=== PATIENT | male | born 1960 | race Caucasian/White ===

== ENCOUNTER 2020-11-20 08:01 | Outpatient (AMBR) | payer MEDICARE, MEDICAID, SELFPAY ==
--- NOTE | 2020-11-20 08:10 | PT.OIERPT ---
PT OP Initial Eval Patient Information Visit Reasons: low back pain Medical Diagnosis: M54.5 M51.36 M47.816 Treatment Dx #1: Start of Care: 11/20/20 Date of Onset: 4 weeks ago Initial Assessment Subjective Pt is 60 yr old male who reports a fall at home with pain in the back and B hips since then. Increased pain with prolonged sitting, getting up from a chair and bending. He is not working at this time and says his L/S is not hurting just the T/S. PLOF: prior to fall pt had mobility of T/S and L/S not limited by pain and no pain with sitting. PMH: HTN, allergies, L TKA Imaging: X-ray of L/S in EMR: Moderate multilevel DJD Pt goal: to lessen the pain Objective Trunk ArOM: B SB 18 with pain L>R Extension: 30% with pain around T8-12 Flexion: 10 from floor with LBP B rotation: 40% R SLR ROM: 52 deg. L SLR: 50 deg with posterior knee neural tension, LBP LE strength: B hamstrings: 4/5 Quads 4/5 TTP: moderate T8-12 paraspinals Assessment Pt presents with thoracic pain and decreased thoracic ROM consistent with Dx of spondylosis. X-rays reveal anterior spurring of T/S that is likely contributing to the mid-back pain. Pt is not having L/S pain and is not likely to benefit from skilled therapy due to amount of osteophytes. Eval followed by HEP with materials. Short Term and Retirement Goals Eval and D/C Treatment Plan Eval and D/C Certification Dates: 11/20/20 to 12/21/20 Office Procedures PT Procedures PT Date of Service: 11/20/20 OP PT Eval Mod Complex 30 minutes: Yes
== END 2020-11-25 23:59 | disposition home or self-care (01) ==
PROVIDERS: PCP Physician Assistant; Referring Provider Physician Assistant; Visit Provider Physician Assistant
DX: M54.5 Low back pain (principal); M51.36 Other intervertebral disc degeneration, lumbar region; M47.816 Spondylosis without myelopathy or radiculopathy, lumbar region
CPT/HCPCS: 97162